=== PATIENT | female | born 1965 | race Caucasian/White ===

== ENCOUNTER 2017-02-06 19:03 | Inpatient (IN) | payer MEDICAID, OTHER ==
[~2017-02-06] VITALS: Ht 165.1 cm; Wt 91.6 kg
[~2017-02-06 19:03] MED LIST: ACET-784 PO; ALBU8HFA4 IH; CLOZ100 PO; DIPH50 PO; DOCU250C91 PO; HALO5I IM; LITH300T PO; LORA2TAB2 PO; MAAL30 PO; MAGN296S PO; OXCA300T PO; PROM25I IM; QUET300T2 PO
[2017-02-06] MEDS ORDERED: HALOPERIDOL LACTATE 5 MG/ML VIAL IM ONE (19:15)
[2017-02-06] MEDS ORDERED: DiphenhydrAMINE HCL 50 MG/ML VIAL IM ONE (19:15)
[2017-02-06] MEDS ORDERED: LORazepam 2 MG/ML VIAL IM ONE (19:15)
[2017-02-06 19:23] LABS: BASOPHILS % (AUTO) 0.5 % (0.0-2.0); EOSINOPHILS % (AUTO) 0 % (1.0-6.0); HEMATOCRIT 41.4 % (36-46); HEMOGLOBIN 14.2 g/dL (12.0-16.0); LYMPHOCYTES # (AUTO) 1.8 K/uL (1.0-4.8); LYMPHOCYTES % (AUTO) 20.4 % (22.0-44.0); MEAN CORPUSCULAR HEMOGLOBIN 31.5 pg (26.0-34.0); MEAN CORPUSCULAR HGB CONC 34.3 G/dL (31.0-37.0); MEAN CORPUSCULAR VOLUME 92 fL (80-100); MONOCYTES # (AUTO) 0.5 K/uL (0.1-1.0); MONOCYTES % (AUTO) 5.6 % (2.0-9.0); NEUTROPHILS # (AUTO) 6.4 K/uL (1.8-7.7); NEUTROPHILS % (AUTO) 73.5 % (40.0-70.0); PLATELET COUNT (AUTO) 197 K/uL (150-450); RED BLOOD CELL COUNT(AUTO) 4.51 MIL/uL (4.00-5.20); RED CELL DISTRIBUTION WIDTH 12.1 % (11.5-14.5); WHITE BLOOD COUNT (AUTO) 8.7 K/uL (4.5-11.0)
[2017-02-06 19:33] LABS: ANION GAP 13 mmol/L (8-16); CARBON DIOXIDE 22 mmol/L (22-29); CHLORIDE 97 mmol/L (98-107); CREATININE 1.25 mg/dL (0.60-1.30); GLOMERULAR FILTR. RATE CALC 45 mL/min (>60); POTASSIUM 3.5 mmol/L (3.5-5.1); SODIUM SERUM 132 mmol/L (136-145); UREA NITROGEN, BLOOD 18 mg/dL (7-18)
[2017-02-06 19:39] LABS: ALANINE AMINOTRANSFERASE 23 U/L (12-78); ALBUMIN 4.2 g/dL (3.4-5.0); ASPARTATE AMINOTRANSFERASE 22 U/L (15-37); BILIRUBIN,TOTAL 0.3 mg/dL (0.1-1.0); TOTAL PROTEIN, SERUM 7.6 g/dL (6.4-8.2)
[2017-02-06] MEDS ORDERED: HALOPERIDOL 5 MG TABLET PO PRN (21:00)
[2017-02-06] MEDS ORDERED: ZOLPIDEM TARTRATE 10 MG TABLET PO PRN (21:00)
[2017-02-06 21:40] LABS: CHOL/HDL RATIO 3.5 (3.9-5.7); THYROID STIMULATING HORMONE 3.07 uIU/mL (0.36-3.74)
[2017-02-06 23:06] LABS: APPEARANCE,URINE CLEAR (CLEAR); GLUCOSE, URINE (UA) NEGATIVE (NEGATIVE); KETONES,URINE NEGATIVE (NEGATIVE); LEUKOCYTE ESTERASE ,URINE NEGATIVE (NEGATIVE); OCCULT BLOOD,URINE NEGATIVE (NEGATIVE); PROTEIN,URINE NEGATIVE (NEGATIVE)
[2017-02-06 23:11] LABS: ADD UA MICROSCOPIC NO
[2017-02-07] MEDS ORDERED: INFLUENZA VIRUS VACCINE QVS 2017-18 (3YR+)/PF 60 MCG/0.5 ML SYRINGE IM ONE (00:30)
[2017-02-07 00:35] VITALS: BP 133/67
[2017-02-07 08:20] VITALS: BP 125/80
[2017-02-07] MEDS ORDERED: ALBUTEROL SULFATE HFA 90 MCG/PUFF 8 GM INHALER IH PRN (15:00)
[2017-02-07] MEDS ORDERED: MAGNESIUM CITRATE 300 ML ORAL SOLUTION PO PRN (15:00)
[2017-02-07 16:20] VITALS: BP 130/83
[2017-02-07] MEDS: DOCUSATE SODIUM 250 MG CAPSULE PO SCH (16:20)
[2017-02-07] MEDS: OXcarbazepine 300 MG TABLET PO SCH (16:20)
[2017-02-07] MEDS: CloZAPine 100 MG TABLET PO SCH (20:35)
[2017-02-08 06:01] VITALS: BP 140/88
[2017-02-08 09:04] VITALS: BP 108/67
[2017-02-08] MEDS: OXcarbazepine 300 MG TABLET PO SCH ×2 (09:27→16:12)
[2017-02-08] MEDS: CloZAPine 100 MG TABLET PO SCH ×2 (09:27→20:33)
[2017-02-08] MEDS: DOCUSATE SODIUM 250 MG CAPSULE PO SCH ×2 (09:27→16:12)
[2017-02-08 16:13] VITALS: BP 133/85
[2017-02-08] MEDS: QUEtiapine FUMARATE 300 MG TABLET PO SCH (20:33)
[2017-02-09 06:37] VITALS: BP 112/78
[2017-02-09] MEDS: QUEtiapine FUMARATE 300 MG TABLET PO SCH ×2 (08:42→20:08)
[2017-02-09] MEDS: DOCUSATE SODIUM 250 MG CAPSULE PO SCH ×2 (08:42→16:08)
[2017-02-09] MEDS: OXcarbazepine 300 MG TABLET PO SCH ×2 (08:43→16:08)
[2017-02-09] MEDS: CloZAPine 100 MG TABLET PO SCH ×2 (08:44→20:08)
[2017-02-09 09:00] VITALS: BP 110/80
[2017-02-09 16:14] VITALS: BP 132/91
[2017-02-10 06:25] VITALS: BP 114/69
[2017-02-10 08:18] VITALS: BP 105/60
[2017-02-10] MEDS: OXcarbazepine 300 MG TABLET PO SCH ×2 (09:10→16:14)
[2017-02-10] MEDS: QUEtiapine FUMARATE 300 MG TABLET PO SCH ×2 (09:10→20:05)
[2017-02-10] MEDS: CloZAPine 100 MG TABLET PO SCH ×2 (09:10→20:06)
[2017-02-10] MEDS: DOCUSATE SODIUM 250 MG CAPSULE PO SCH ×2 (09:10→16:14)
[2017-02-10 16:29] VITALS: BP 129/85
[2017-02-11 06:15] VITALS: BP 112/71
[2017-02-11 08:16] VITALS: BP 146/79
[2017-02-11] MEDS: QUEtiapine FUMARATE 300 MG TABLET PO SCH ×2 (08:24→20:11)
[2017-02-11] MEDS: OXcarbazepine 300 MG TABLET PO SCH ×2 (08:24→16:03)
[2017-02-11] MEDS: CloZAPine 100 MG TABLET PO SCH ×2 (08:24→20:11)
[2017-02-11] MEDS: DOCUSATE SODIUM 250 MG CAPSULE PO SCH ×2 (08:24→16:03)
[2017-02-11] MEDS ORDERED: ACETAMINOPHEN 325 MG TABLET PO PRN (12:45)
[2017-02-11] MEDS ORDERED: IBUPROFEN 600 MG TABLET PO PRN (12:45)
[2017-02-11 16:21] VITALS: BP 132/95
[2017-02-12 06:00] VITALS: BP 115/74
[2017-02-12 08:37] VITALS: BP 130/91
[2017-02-12] MEDS: QUEtiapine FUMARATE 300 MG TABLET PO SCH ×2 (10:18→20:18)
[2017-02-12] MEDS: DOCUSATE SODIUM 250 MG CAPSULE PO SCH ×2 (10:18→16:06)
[2017-02-12] MEDS: OXcarbazepine 300 MG TABLET PO SCH ×2 (10:18→16:06)
[2017-02-12] MEDS: CloZAPine 100 MG TABLET PO SCH ×2 (10:18→20:21)
[2017-02-12] MEDS ORDERED: DiphenhydrAMINE HCL 50 MG/ML VIAL IM ONE (11:00)
[2017-02-12] MEDS ORDERED: LORazepam 2 MG/ML VIAL IM ONE (11:00)
[2017-02-12] MEDS ORDERED: HALOPERIDOL LACTATE 5 MG/ML VIAL IM ONE (11:00)
[2017-02-12 16:30] VITALS: BP 133/87
[2017-02-13 07:17] VITALS: BP 130/82
[2017-02-13] MEDS: QUEtiapine FUMARATE 300 MG TABLET PO SCH ×2 (08:26→20:49)
[2017-02-13] MEDS: DOCUSATE SODIUM 250 MG CAPSULE PO SCH ×2 (08:27→16:29)
[2017-02-13] MEDS: CloZAPine 100 MG TABLET PO SCH ×2 (08:27→20:49)
[2017-02-13] MEDS: OXcarbazepine 300 MG TABLET PO SCH ×2 (08:27→16:29)
[2017-02-13 08:34] VITALS: BP 117/77
[2017-02-13 16:26] VITALS: BP 126/62
[2017-02-14 06:17] VITALS: BP 128/70
[2017-02-14] MEDS: DOCUSATE SODIUM 250 MG CAPSULE PO SCH ×2 (08:22→16:42)
[2017-02-14] MEDS: OXcarbazepine 300 MG TABLET PO SCH ×2 (08:22→16:42)
[2017-02-14] MEDS: CloZAPine 100 MG TABLET PO SCH ×2 (08:22→20:06)
[2017-02-14] MEDS: QUEtiapine FUMARATE 300 MG TABLET PO SCH ×2 (08:22→20:06)
[2017-02-14 08:24] VITALS: BP 130/83
[2017-02-14 09:40] LABS: CLOZAPINE 141 ng/mL (350-650); CLOZAPINE & NORCLOZAPINE 205 ng/mL; NORCLOZAPINE 64 ng/mL (Not Estab.)
[2017-02-14] MEDS ORDERED: HALOPERIDOL LACTATE 5 MG/ML VIAL IM PRN (13:15)
[2017-02-14 16:36] VITALS: BP 135/85
[2017-02-15 05:57] VITALS: BP 128/86
[2017-02-15 08:00] VITALS: BP 139/96
[2017-02-15] MEDS: QUEtiapine FUMARATE 300 MG TABLET PO SCH ×2 (09:07→20:32)
[2017-02-15] MEDS: OXcarbazepine 300 MG TABLET PO SCH ×2 (09:08→16:12)
[2017-02-15] MEDS: DOCUSATE SODIUM 250 MG CAPSULE PO SCH ×2 (09:08→16:12)
[2017-02-15] MEDS: CloZAPine 100 MG TABLET PO SCH ×2 (09:08→20:32)
[2017-02-15] MEDS: LORazepam 2 MG TABLET PO PRN (16:12)
[2017-02-15 16:33] VITALS: BP 139/97
[2017-02-16 06:52] VITALS: BP 130/88
[2017-02-16] MEDS: DOCUSATE SODIUM 250 MG CAPSULE PO SCH ×2 (08:14→16:06)
[2017-02-16] MEDS: CloZAPine 100 MG TABLET PO SCH ×2 (08:14→20:12)
[2017-02-16] MEDS: QUEtiapine FUMARATE 300 MG TABLET PO SCH ×2 (08:14→20:11)
[2017-02-16] MEDS: OXcarbazepine 300 MG TABLET PO SCH ×2 (08:14→16:06)
[2017-02-16 08:42] VITALS: BP 115/73
[2017-02-16 16:22] VITALS: BP 158/105
[2017-02-17 08:21] LABS: BASOPHILS % (AUTO) 0.5 % (0.0-2.0); EOSINOPHILS % (AUTO) 0 % (1.0-6.0); HEMATOCRIT 40.6 % (36-46); LYMPHOCYTES # (AUTO) 1.4 K/uL (1.0-4.8); MEAN CORPUSCULAR HEMOGLOBIN 31.8 pg (26.0-34.0); MEAN CORPUSCULAR HGB CONC 34.5 G/dL (31.0-37.0); MEAN CORPUSCULAR VOLUME 92 fL (80-100); MONOCYTES # (AUTO) 0.4 K/uL (0.1-1.0); MONOCYTES % (AUTO) 7.9 % (2.0-9.0); NEUTROPHILS # (AUTO) 3.5 K/uL (1.8-7.7); NEUTROPHILS % (AUTO) 65.6 % (40.0-70.0); PLATELET COUNT (AUTO) 179 K/uL (150-450); RED BLOOD CELL COUNT(AUTO) 4.41 MIL/uL (4.00-5.20); RED CELL DISTRIBUTION WIDTH 12.4 % (11.5-14.5); WHITE BLOOD COUNT (AUTO) 5.4 K/uL (4.5-11.0)
[2017-02-17 08:25] VITALS: BP 126/71
[2017-02-17] MEDS: DOCUSATE SODIUM 250 MG CAPSULE PO SCH ×2 (09:12→16:41)
[2017-02-17] MEDS: QUEtiapine FUMARATE 300 MG TABLET PO SCH ×2 (09:12→20:52)
[2017-02-17] MEDS: CloZAPine 100 MG TABLET PO SCH ×2 (09:13→20:52)
[2017-02-17] MEDS: OXcarbazepine 300 MG TABLET PO SCH ×2 (09:13→16:42)
[2017-02-17 16:19] VITALS: BP_SYST 112; BP_SYST 132; BP_DIAS 71; BP_DIAS 81
[2017-02-18 07:05] VITALS: BP 142/90
[2017-02-18 08:28] VITALS: BP 117/79
[2017-02-18] MEDS: DOCUSATE SODIUM 250 MG CAPSULE PO SCH ×2 (08:36→16:04)
[2017-02-18] MEDS: CloZAPine 100 MG TABLET PO SCH ×2 (08:36→20:48)
[2017-02-18] MEDS: OXcarbazepine 300 MG TABLET PO SCH ×2 (08:36→16:04)
[2017-02-18] MEDS: QUEtiapine FUMARATE 300 MG TABLET PO SCH ×2 (08:36→20:48)
[2017-02-18 16:20] VITALS: BP 134/88
[2017-02-19 08:26] VITALS: BP 116/72
[2017-02-19] MEDS: OXcarbazepine 300 MG TABLET PO SCH (08:53)
[2017-02-19] MEDS: CloZAPine 100 MG TABLET PO SCH (08:53)
[2017-02-19] MEDS: QUEtiapine FUMARATE 300 MG TABLET PO SCH (08:54)
[2017-02-19] MEDS: DOCUSATE SODIUM 250 MG CAPSULE PO SCH (08:54)
[2017-02-19] MEDS: LORazepam 2 MG TABLET PO PRN (09:01)
== END 2017-02-19 13:00 | disposition home or self-care (01) | DRG 753 ==
LOC: EMS 19:05 → B3A 22:41
PROC: 3E0234Z Introduction of Serum, Toxoid and Vaccine into Muscle, Percutaneous Approach (ICD-10-PCS; principal; 2017-02-07)
DX: F31.2 Bipolar disorder, current episode manic severe with psychotic features (principal); E87.1 Hypo-osmolality and hyponatremia; I12.9 Hypertensive chronic kidney disease with stage 1 through stage 4 chronic kidney disease, or unspecified chronic kidney disease; E03.9 Hypothyroidism, unspecified; F79 Unspecified intellectual disabilities; J45.909 Unspecified asthma, uncomplicated; K59.00 Constipation, unspecified; N18.9 Chronic kidney disease, unspecified; Z79.899 Other long term (current) drug therapy; Z82.49 Family history of ischemic heart disease and other diseases of the circulatory system; Z83.3 Family history of diabetes mellitus; Z91.5 Personal history of self-harm; Z23 Encounter for immunization; Z88.1 Allergy status to other antibiotic agents; Z88.2 Allergy status to sulfonamides; Z88.8 Allergy status to other drugs, medicaments and biological substances
CPT/HCPCS: 80159; 84443; 90471; 96372; 99291; G0480; J1200; J1630; J2060